=== PATIENT | male | born 1995 | race Two or more races ===

== ENCOUNTER 2022-11-20 12:44 | Emergency (ER) | payer OTHER ==
[~2022-11-20] VITALS: Ht 182.9 cm; Wt 123.4 kg
[2022-11-20] MEDS ORDERED: PENICILLIN G BENZATHINE LA 1.2 MU TBX IM STA (14:30)
[2022-11-20] MEDS ORDERED: PENICILLIN G BENZATHINE LA 1.2 MU TBX ONE (14:45)
== END 2022-11-20 14:58 | disposition home or self-care (01) ==
LOC: FSED 12:50
DX: A53.9 Syphilis, unspecified (principal)
CPT/HCPCS: 96372; 99282; J0561